=== PATIENT | male | born 1985 | race Caucasian/White ===

== ENCOUNTER 2021-10-30 14:33 | Emergency (ER) | payer BC, SELFPAY ==
[2021-10-30 14:42] VITALS: BP 129/78; PULSE 104; RESP 16; TEMP 36.8; O2SAT 96
--- NOTE | 2021-10-30 15:29 | ED_ITS ---
Documented by User: ANNA Timmons 10/31/21 13:20 HPI - General Adult General: Chief complaint: General Medical Stated complaint: possible spider bite to L shoulder, n/v Time Seen by Provider: 10/30/21 15:06 History of Present Illness: Patient is a 36-year-old male who comes to the ED with rash. Rash started on Wednesday and it was on his right hip. On Wednesday he also noticed a spider bite on his left shoulder as well. He is pretty sure it was a brown recluse because bite. Rash on hip was red and itchy at first and then over the past couple days its continued to spread. He was nauseous and an episode of emesis Wednesday [place] the [place] and sweating all day. He saw his PCP on Wednesday he thomas some labs and gave him a liter of IV fluids and thought he suffered from heat exhaustion yesterday. Patient was then sent home on cephalexin as well. Patient's rash on his hip has spread and gotten larger since Wednesday. The rash is now moved up and through his abdomen and to his chest and extends into his bilateral upper arms. Rash also extends down into his thighs bilaterally. He has multiple small pustules that developed on left hip and right buttock. He endorses some clear discharge from rash as well. He says his rash now is more painful than itchy. He has had low-grade fevers for the past couple days with a temp of 100.5 at home. Patient took some Tylenol couple hours prior to arriving to the ED. Associated symptoms: Reports rash; Deny chest pain, dyspnea, headache(s), nausea, palpitations or vomiting Review of Systems Const: Denies: fever(s), chills or fatigue Eyes: Denies: change in vision or eye discomfort ENMT: Denies: throat pain, odynophagia, nasal discharge or nasal congestion Card: Denies: chest pain, palpitations, edema, swelling of feet/ankles, dyspnea on exertion or orthopnea Resp: Denies: dyspnea, productive cough or non-productive cough GI: Denies: abdominal pain, nausea, vomiting, diarrhea, constipation or hematochezia : Denies: flank pain, difficulty urinating, dysuria or hematuria Musc: Denies: neck pain, back pain or extremity swelling Skin/Breast: Reports: rash; Denies: new lesions Neuro: Denies: headache(s), numbness in extremities or weakness in extremities PFSH ED PFSH: Medical History (Updated 11/07/21 @ 00:01 by ) No pertinent family history Surgical History (Updated 10/31/21 @ 13:20 by ANNA Timmons) No pertinent past surgical history Physical Exam Const: COMMON NORMALS: patient oriented x3 and alert GENERAL APPEARANCE: cooperative HENMT: COMMON NORMALS: normocephalic HEAD & SCALP: normocephalic MOUTH: Normal oral and palatal mucosa present THROAT: posterior oropharynx normal and uvula midline Neck/C-Spine: COMMON NORMALS: supple GENERAL: Yes normal visual inspection Resp: COMMON NORMALS: normal respiratory effort, No retractions, No use of accessory muscles and clear to auscultation bilaterally AUSCULTATION: clear to auscultation bilaterally Cardio: COMMON NORMALS: regular rate, regular rhythm, S1 normal heart sound present, S2 normal heart sound present, No gallops present (Cardio), No clicks present (Cardio), No murmurs present (Cardio) and Peripheral pulses 2+ throughout RATE: regular rate RHYTHM: regular rhythm HEART SOUNDS: S1 normal heart sound present and S2 normal heart sound present PERIPHERAL PULSES: Peripheral pulses 2+ throughout GI: COMMON NORMALS: Normal to inspection, nondistended, normoactive bowel sounds present, Soft to palpation, non-tender and no masses PALPATION: Yes Soft to palpation : COMMON NORMALS: Yes no CVA tenderness BLADDER/KIDNEY EXAM: Yes no CVA tenderness Back/Pelvis: COMMON NORMALS: no CVA tenderness Neuro: COMMON NORMALS: patient oriented x3 and moves all extremities SENSORIUM/ORIENTATION: Yes alert Skin: NARRATIVE SKIN EXAM: Spider bite on left shoulder with small circular area of ulceration. Rash is on bilateral thighs, bilateral waist abdomen and moves up into bilateral axillary region. Rash is erythemic warm and tender to the touch. He has pustules with some sloughing of the skin on left hip and right buttock. Findi ngs suggestive of acute generalized exanthematous pustulosis GENERAL SKIN EXAM: dry skin Course Consultations: Consultation #1: I consulted Dr. Castellanos the radiator fitter here at [facility]. I told her about patient case and sent her pictures of patient's rash. She says the patient has acute generalized exanthematous pustulosis which is likely due to to brown recluse spider bite on left shoulder. This is rare condition and even more rare that it came from a spider bite. She recommended patient being transferred to a burn unit for treatment. Vital Signs: Vital signs: Vital Signs Temperature 98.2 F 10/30/21 14:42 Pulse Rate 104 H 10/30/21 14:42 Respiratory Rate 16 10/30/21 14:42 Blood Pressure 129/78 10/30/21 14:42 Pulse Oximetry 96 10/30/21 14:42 MDM - General Adult Medical Decision Making Patient is a 36-year-old male comes to the ED with a rash. Rash is acute generalized exanthematous pustulosis likely due to spider bite. White blood cell count of 11.4 and a CRP of 142 rest of labs are unremarkable. I contacted Dr. Castellanos the radiator fitter here at [facility] to get her opinion on rash. I told her about patient case and sent over pictures of patient's rash and she agreed that it is acute generalized exanthematous pustulosis and it could likely be from the spider bite on his left shoulder. She recommended calling other hospitals for transfer of patient to possible burn unit if needed. I talked with Dr. Mcdonald about patient case at the end of my shift and he will be taking over care and dispo of patient as our unit calls around for possible transfer.-Bc Bello PA-C Lab Data I reviewed the patient's lab results. : 10/30/21 15:09 10/30/21 15:09 Laboratory Results WBC 11.4 10^3/uL (4.0-10.0) H 10/30/21 15:09 RBC 4.72 10^6/uL (4.1-5.3) 10/30/21 15:09 Hgb 13.7 g/dL (11.7-16.6) 10/30/21 15:09 Hct 38.9 % (42.0-52.0) L 10/30/21 15:09 MCV 82.4 fl (80-94) 10/30/21 15:09 MCH 29.0 pg (28.0-34.0) 10/30/21 15:09 MCHC 35.2 g/dL (30.0-36.0) 10/30/21 15:09 RDW 12.8 % (12.1-15.1) 10/30/21 15:09 Plt Count 215 10^3/cmm (130-400) 10/30/21 15:09 MPV 10.9 fL (7.4-10.4) H 10/30/21 15:09 Neut % (Auto) 87.8 % 10/30/21 15:09 Lymph % (Auto) 5.2 % 10/30/21 15:09 Laporte % (Auto) 2.2 % 10/30/21 15:09 Eos % (Auto) 4.2 % 10/30/21 15:09 Baso % (Auto) 0.1 % 10/30/21 15:09 Neut # (Auto) 10.05 10^3/uL (1.8-7.7) H 10/30/21 15:09 Lymph # (Auto) 0.6 10^3/uL (0.8-4.8) L 10/30/21 15:09 Laporte # (Auto) 0.3 10^3/uL (0.2-0.9) 10/30/21 15:09 Eos # (Auto) 0.5 10^3/uL (0.0-0.8) 10/30/21 15:09 Baso # (Auto) 0.0 10^3/uL (0.0-0.1) 10/30/21 15:09 Nucleated RBC % (auto) 0 % 10/30/21 15:09 Nucleated RBCs # 0.0 /100WBC 10/30/21 15:09 ESR 17 mm/hr (0-10) H 10/30/21 15:09 Sodium 130 mmol/L (136-145) L 10/30/21 15:09 Potassium 3.2 mmol/L (3.5-5.1) L 10/30/21 15:09 Chloride 92 mmol/L (98-107) L 10/30/21 15:09 Carbon Dioxide 24 mmol/L (22-29) 10/30/21 15:09 Anion Gap 17.2 (5-19) 10/30/21 15:09 BUN 7 mg/dL (6-20) 10/30/21 15:09 Creatinine 0.8 mg/dL (0.7-1.2) 10/30/21 15:09 GFR Calculation 110.0 mL/min (90-130) 10/30/21 15:09 Glucose 218 mg/dL (65-115) H 10/30/21 15:09 Calculated Osmolality 275 mOsm/kg (285-295) L 10/30/21 15:09 Calcium 8.4 mg/dL (8.5-10.5) L 10/30/21 15:09 Total Bilirubin 0.9 mg/dL (0.15-1.2) 10/30/21 15:09 AST 16 U/L (0-40) 10/30/21 15:09 ALT 13 U/L (0-41) 10/30/21 15:09 Alkaline Phosphatase 89 IU/L (40-130) 10/30/21 15:09 C-Reactive Protein 142.8 mg/L (0.0-4.9) H 10/30/21 15:09 Total Protein 6.9 g/dL (6.6-8.7) 10/30/21 15:09 Albumin 3.7 g/dL (3.5-5.2) 10/30/21 15:09 Globulin 3.2 g/dL (1.3-4.6) 10/30/21 15:09 Misc Test Reference Cancelled 10/30/21 15:09 Discharge Plan Discharge Patient Disposition: Home Clinical Impression: Acute generalized exanthematous pustulosis due to drug, Spider bite Condition: Stable Discharge Orders: Discharge ED (Routine); Ordered 10/30/21 Ordered By: Brady Mcdonald Discharge Diet: Usual diet Discharge Activity: Increase activity as tolerated Patient Instructions: Triamcinolone (On the skin), Dehydration (ED), Hypokalemia (ED), Acute Rash (ED) Activity Restrictions/Additional Instructions: Thank you for visiting the emergency department. You were seen for rash. This appears to be related to acute generalized exanthematous pustulosis likely related to insect bite. After extensive discussion this can be treated in the outpatient environment with strict return precautions. Please follow-up with your primary care provider and dermatology. Please call for follow-up in [place] with [facility] at [phone] and let them know I discussed the case with Dr Collins. Return to the emergency department immediately for fevers, any lesions involving the mouth, genitals, or other mucous membranes, any significant peeling of the skin especially palms or soles of feet or significant blister formation, generalized worsening, or anything else that you are concerned about him feel needs emergency room evaluation. Sign Out Sign Out Data: Patient Sign Out occurred on 10/30/21 at 17:03. Patient's care was discussed, and care was transferred from to Brady Mcdonald MD. Coding Level of Care Code ED Appraisal Manager for Chg Fwd Exam Comprehensive Documented by User: Brady Mcdonald MD 11/12/21 16:07 HPI - General Adult General: Chief complaint: General Medical Stated complaint: possible spider bite to L shoulder, n/v Time Seen by Provider: 10/30/21 15:06 [facility] ED PFSH: Medical History (Updated 11/07/21 @ 00:01 by ) No pertinent family history Surgical History (Updated 10/31/21 @ 13:20 by ANNA Timmons) No pertinent past surgical history Course Vital Signs: Vital signs: Vital Signs Temperature 98.2 F 10/30/21 14:42 Pulse Rate 104 H 10/30/21 14:42 Respiratory Rate 16 10/30/21 14:42 Blood Pressure 129/78 10/30/21 14:42 Pulse Oximetry 96 10/30/21 14:42 MDM - General Adult Medical Decision Making Patient is a 36-year-old male comes to the ED with a rash. Rash is acute generalized exanthematous pustulosis likely due to spider bite. White blood cell count of 11.4 and a CRP of 142 rest of labs are unremarkable. I contacted Dr. Castellanos the radiator fitter here at [facility] just to get her opinion on rash. I told her about patient case and sent over pictures of patient's rash and she agreed that it is acute generalized exanthematous pustulosis and it could likely be from the spider bite on his left shoulder. She recommended calling other hospitals for transfer of patient to possible burn unit if needed. I talked with Dr. Mcdonald about patient case at the end of my shift and he will be taking over care and dispo of patient as our unit calls around for possible transfer.-Bc Bello PA-C I discussed this case with ANNA Timmons. I personally saw and evaluated reperformed vargas portions of E/M. I have reviewed this documentation. Rash consistent with AGEP which can be triggered by insect bite as this preceded antibiotic initiation. Patient otherwise feels well. No evidence of SJS or TENS. Given extent of rash I did attempt to transfer the patient. In discussion with burn physician in [place] he did not feel that burn unit admission was needed and did not feel that they had adequate inpatient dermatology services to except patient. I continue to attempt to call including to [place] where I spoke with dermatology and some pictures which Dr Collins reviewed. They did not feel that patient required inpatient management and instead recommended topical treatment with outpatient follow-up. I discussed possible options with the patient including offering transfer regardless for further dermatologic evaluation however the patient was comfortable foregoing this and desire discharge. I gave extensive return precautions and follow-up plan. I have discussed case with dermatology within our system however unfortunately she is out of the office patient cannot have close follow-up. Patient discharged in satisfactory condition with strict return precautions verbalized and understood. Brady Mcdonald MD Emergency Medicine Lab Data : 10/30/21 15:09 10/30/21 15:09 Laboratory Results WBC 11.4 10^3/uL (4.0-10.0) H 10/30/21 15:09 RBC 4.72 10^6/uL (4.1-5.3) 10/30/21 15:09 Hgb 13.7 g/dL (11.7-16.6) 10/30/21 15:09 Hct 38.9 % (42.0-52.0) L 10/30/21 15:09 MCV 82.4 fl (80-94) 10/30/21 15:09 MCH 29.0 pg (28.0-34.0) 10/30/21 15:09 MCHC 35.2 g/dL (30.0-36.0) 10/30/21 15:09 RDW 12.8 % (12.1-15.1) 10/30/21 15:09 Plt Count 215 10^3/cmm (130-400) 10/30/21 15:09 MPV 10.9 fL (7.4-10.4) H 10/30/21 15:09 Neut % (Auto) 87.8 % 10/30/21 15:09 Lymph % (Auto) 5.2 % 10/30/21 15:09 Laporte % (Auto) 2.2 % 10/30/21 15:09 Eos % (Auto) 4.2 % 10/30/21 15:09 Baso % (Auto) 0.1 % 10/30/21 15:09 Neut # (Auto) 10.05 10^3/uL (1.8-7.7) H 10/30/21 15:09 Lymph # (Auto) 0.6 10^3/uL (0.8-4.8) L 10/30/21 15:09 Laporte # (Auto) 0.3 10^3/uL (0.2-0.9) 10/30/21 15:09 Eos # (Auto) 0.5 10^3/uL (0.0-0.8) 10/30/21 15:09 Baso # (Auto) 0.0 10^3/uL (0.0-0.1) 10/30/21 15:09 Nucleated RBC % (auto) 0 % 10/30/21 15:09 Nucleated RBCs # 0.0 /100WBC 10/30/21 15:09 ESR 17 mm/hr (0-10) H 10/30/21 15:09 Sodium 130 mmol/L (136-145) L 10/30/21 15:09 Potassium 3.2 mmol/L (3.5-5.1) L 10/30/21 15:09 Chloride 92 mmol/L (98-107) L 10/30/21 15:09 Carbon Dioxide 24 mmol/L (22-29) 10/30/21 15:09 Anion Gap 17.2 (5-19) 10/30/21 15:09 BUN 7 mg/dL (6-20) 10/30/21 15:09 Creatinine 0.8 mg/dL (0.7-1.2) 10/30/21 15:09 GFR Calculation 110.0 mL/min (90-130) 10/30/21 15:09 Glucose 218 mg/dL (65-115) H 10/30/21 15:09 Calculated Osmolality 275 mOsm/kg (285-295) L 10/30/21 15:09 Calcium 8.4 mg/dL (8.5-10.5) L 10/30/21 15:09 Total Bilirubin 0.9 mg/dL (0.15-1.2) 10/30/21 15:09 AST 16 U/L (0-40) 10/30/21 15:09 ALT 13 U/L (0-41) 10/30/21 15:09 Alkaline Phosphatase 89 IU/L (40-130) 10/30/21 15:09 C-Reactive Protein 142.8 mg/L (0.0-4.9) H 10/30/21 15:09 Total Protein 6.9 g/dL (6.6-8.7) 10/30/21 15:09 Albumin 3.7 g/dL (3.5-5.2) 10/30/21 15:09 Globulin 3.2 g/dL (1.3-4.6) 10/30/21 15:09 Misc Test Reference Cancelled 10/30/21 15:09 Discharge Plan Discharge Patient Disposition: Home Clinical Impression: Acute generalized exanthematous pustulosis due to drug, Spider bite Condition: Stable Discharge Orders: Discharge ED (Routine); Ordered 10/30/21 Ordered By: Brady Mcdonald Discharge Diet: Usual diet Discharge Activity: Increase activity as tolerated Patient Instructions: Triamcinolone (On the skin), Dehydration (ED), Hypokalemia (ED), Acute Rash (ED) Activity Restrictions/Additional Instructions: Thank you for visiting the emergency department. You were seen for rash. This appears to be related to acute generalized exanthematous pustulosis likely related to insect bite. After extensive discussion this can be treated in the outpatient environment with strict return precautions. Please follow-up with your primary care provider and dermatology. Please call for follow-up in [place] with [facility] at [phone] and let them know I discussed the case with Dr Collins. Return to the emergency department immediately for fevers, any lesions involving the mouth, genitals, or other mucous membranes, any significant peeling of the skin especially palms or soles of feet or significant blister formation, generalized worsening, or anything else that you are concerned about him feel needs emergency room evaluation. Sign Out Sign Out Data: Patient Sign Out occurred on 10/30/21 at 17:03. Patient's care was discussed, and care was transferred from to Brady Mcdonald MD. Coding Level of Care Code ED Appraisal Manager for g Fwd Exam Comprehensive
[2021-10-30] MEDS: sodium chloride 0.9% 1,000 ML 999 ML IV (16:29)
[2021-10-30 16:39] LABS: Basophils % 0.1 %; Eosinophils # 0.5 10^3/uL (0.0-0.8); Eosinophils % 4.2 %; Hematocrit 38.9 % (42.0-52.0); Hemoglobin 13.7 g/dL (11.7-16.6); Lymphocytes # 0.6 10^3/uL (0.8-4.8); Lymphocytes % 5.2 %; Mean Corpuscular HGB Conc 35.2 g/dL (30.0-36.0); Mean Corpuscular Volume 82.4 fl (80-94); Mean Platelet Volume 10.9 fL (7.4-10.4); Monocytes # 0.3 10^3/uL (0.2-0.9); Monocytes % 2.2 %; Neutrophils # 10.05 10^3/uL (1.8-7.7); Neutrophils % 87.8 %; Nucleated Red Blood Cells % 0 %; Platelet Count 215 10^3/cmm (130-400); Red Blood Count 4.72 10^6/uL (4.1-5.3); Red Cell Distribution Width 12.8 % (12.1-15.1); White Blood Count 11.4 10^3/uL (4.0-10.0)
[2021-10-30 17:14] LABS: Alanine Aminotransferase 13 U/L (0-41); Albumin Level 3.7 g/dL (3.5-5.2); Alkaline Phosphatase 89 IU/L (40-130); Anion Gap 17.2 (5-19); Aspartate Amino Transferase 16 U/L (0-40); Blood Urea Nitrogen 7 mg/dL (6-20); C Reactive Protein 142.8 mg/L (0.0-4.9); Calcium 8.4 mg/dL (8.5-10.5); Carbon Dioxide 24 mmol/L (22-29); Chloride 92 mmol/L (98-107); Globulin 3.2 g/dL (1.3-4.6); Glucose 218 mg/dL (65-115); Osmolality Calculated 275 mOsm/kg (285-295); Potassium 3.2 mmol/L (3.5-5.1); Sodium 130 mmol/L (136-145); Total Bilirubin 0.9 mg/dL (0.15-1.2); Total Protein 6.9 g/dL (6.6-8.7)
[2021-10-30] MEDS: potassium chloride ER 20 mEq Tablet 40 MEQ PO (19:20)
--- NOTE | 2021-10-31 16:16 | DCPLANNER ---
Addendum entered by Rocio Barrow 12/01/21 15:53: grain commodity manager was told that when Dermatology called patient to schedule a follow up appointment that patient declined appointment. Original Note: grain commodity manager had message to schedule a follow up appointment for patient with dermatology. grain commodity manager called the dermatology clinic, spoke with Cecille, gave clinic patients information. grain commodity manager was told that patients information would be printed and reviewed. Clinic will call patient with appointment information.
[2021-11-07 13:50] LABS: Erythrocyte Sedimentation Rate 17 mm/hr (0-10)
== END 2021-10-30 20:09 | disposition home or self-care (01) ==
PROVIDERS: Physician Assistant; Emergency Provider Emergency Medicine
DX: L40.3 Pustulosis palmaris et plantaris (principal); T63.301A Toxic effect of unspecified spider venom, accidental (unintentional), initial encounter
CPT/HCPCS: 80053; 85025; 85651; 86140; 99283; J7030